=== PATIENT | male | born 1930 | race Caucasian/White ===

== ENCOUNTER → 2017-10-16 | Day surgery (SDC) | payer MEDICARE, OTHER ==
[~2017-10-16] MED LIST: ACTOS 30 MG TAB30 M1 PO; ADALAT CC60 MG PO; ASPIR 8181 MG PO; B COMPLEX1 EACH PO; BUMETANIDE0.25 MG/1 PO; BUMETANIDE2 M1 PO; CALCIUM ACETAT667 MG PO; CARVEDILOL12.5 MG PO; CHOLESTYRAMINE R5 GM; CLOPIDOGREL75 MG PO; COREG6.25 MG PO; FENOFIBRATE145 M1 PO; FISH OIL 1,001000 M2 PO; GLUCOTROL5 MG PO; HYDROCODON-ACE1 EAC7 PO; HYDROCODONE-AP1 EAC6 PO; IMDUR 60 MG TAB60 M1 PO; LASIX 40 MG TAB40 M2 PO; LEVAQUIN 250 M250 MG PO; LEVOTHYROXIN0.088 MG PO; LEVOTHYROXINE0.05 MG PO; LOPERAMIDE 2 MG2 M1 PO; NITROGLYCERIN0.4 MG SUBLING; PEPCID20 MG PO; PROTONIX40 M4 PO; TOUJEO SOL300 UNIT/1 SUBQ; TRESIBA FL100 UNIT/1 SUBQ; VITAMIN D2000 UNIT PO; [UNRECOGNIZED DRUG - OTHER] PO
[2017-10-16 11:11] LABS: CALCIUM 8.8 mg/dL (8.5-10.1); CREATININE 5.1 mg/dL (0.6-1.3); POTASSIUM 4.2 mmol/L (3.5-5.1)
[2017-10-16 11:15] LABS: ALBUMIN 3.2 g/dL (3.4-5.0); TOTAL BILIRUBIN 0.5 mg/dL (<0.1-1.0)
[2017-10-16 11:40] LABS: HEMATOCRIT 29.1 % (42.0-52.0); MCH 33.6 pg (26.0-34.0); MCHC 34.5 g/dL (28.0-37.0); MCV 97.3 fL (80.0-100.0); MPV 7.3 fl. (7.2-11.1); RBC 2.99 mil/uL (4.50-6.00); RDW-CV 13.2 % (10.5-14.5); WBC 4.8 thou/uL (4.0-11.0)
--- NOTE | 2017-10-16 14:54 | EKG ---
[place] [address] ELECTROCARDIOGRAM REPORT Name: RAMON DHILLON Room: [facility]#: [id number] Admission: 10/16/17 Attend Phys: Mio Monroe DO Discharge: Date of : [birth year] Report #: [id number] THIS REPORT FOR: //name// [facility] Test Date: 2017-10-16 Test Time: 11:00:52 Pat Name: RAMON DHILLON Department: Room: Gender: M Product Planner: : [id number] Requested By: Mio Monroe Order Number: [id number] Reading MD: Garth Jacobson Measurements Intervals Friedens Rate: 57 P: 55 NM: 206 QRS: 26 QRSD: 101 T: 114 QT: 439 QTc: 428 Interpretive Statements Sinus rhythm Nonspecific T abnormalities, lateral leads Compared to ECG 02/04/2017 09:18:51 T-wave abnormality now present Electronically Signed On 10-16-2017 14:54:37 CDT by Garth Jacobson [email or web address] <ELECTRONICALLY SIGNED> By: Garth Jacobson MD, [facility] 10/16/17 1454 1100 [facility] Garth Jacobson MD, FAC /EPI
--- NOTE | 2017-10-17 08:01 | OP ---
[address] [address] OPERATIVE REPORT Name: RAMON DHILLON Room: [facility]#: [id number] Admission: 10/16/17 Attend Phys: Mio Monroe DO Discharge: Date of : [birth year] Report #: [id number] THIS REPORT FOR: //name// CC: Mio Cortez DATE OF SERVICE: 10/16/2017 PREOPERATIVE DIAGNOSIS: Chronic kidney disease. POSTOPERATIVE DIAGNOSIS: Chronic kidney disease. OPERATION: Creation of a left brachial axillary arteriovenous graft with a 4-7 tapered Acuseal graft. SURGEON: Mio Monroe DO. HEADING SAW OPERATOR: JENNY Cassidy. ANESTHESIA: Sedation local. ESTIMATED BLOOD LOSS: 100 mL. FLUIDS: 250 crystalloid. URINE OUTPUT: None. SPECIMENS: None. IMPLANTS: A 4-7 tapered Acuseal graft in the left upper arm. COMPLICATIONS: None. FINDINGS: The left brachial artery was soft, 5 mm in diameter, suitable for access. The axillary vein was about 9 mm in diameter, good outflow. There was an excellent thrill within the graft completion with a palpable left radial artery pulse. CLINICAL HISTORY: The patient is an 87-year-old man who is nearing end-stage renal disease and needing dialysis. He has had previous left upper extremity fistula that thrombosed. Vein mapping suggested no good option for autogenous conduit in the left upper extremity, so a recommendation for graft was made and he presents today for same. DESCRIPTION OF PROCEDURE: After informed consent was obtained, the patient was taken to the operating room and placed on the OR bed in supine position. He was [facility] [address] [place] [address] OPERATIVE REPORT Name: RAMON DHILLON Room: [facility].#: [id number] Admission: 10/16/17 Attend Phys: Mio Monroe DO Discharge: Date of : [birth year] Report #: [id number] administered sedation by the Anesthesia Team. Left upper extremity was then prepped and draped in the usual sterile fashion. A full timeout was performed identifying correct patient and procedure. Next, a longitudinal incision was made on the medial aspect of the left upper arm. Dissection was carried down through skin and subcutaneous tissues both sharply and with electrocautery. The brachial artery was identified, circumferentially mobilized proximally and distally and controlled with Silastic vessel loops in Lim fashion. This was done after anesthetizing the skin and subcutaneous tissues with 10 mL of lidocaine anesthetic. I then turned my attention to the axillary region, again anesthetized the skin and subcutaneous tissues with lidocaine anesthetic, again made an incision longitudinally then carried my dissection through skin and subcutaneous tissues, both sharply and with electrocautery. The axillary vein was identified, again circumferentially mobilized proximally and distally, controlled with Silastic vessel loop. I then tunneled the graft anteromedially on the left upper arm. I then administered 5000 units of intravenous heparin. This was allowed to circulate for 3 minutes. I then tailored a lam, tailored anastomosis for the graft. I then occluded the brachial artery, made a longitudinal arteriotomy and extended with Lim scissors. I then performed an end-to-side anastomosis with a running 6-0 Prolene suture. Restored flow first up the graft and then distally to the hand. I then flushed the graft with heparinized saline and controlled with a profunda clamp. I then tailored the venous lam. I then occluded the axillary vein, made a longitudinal venotomy and extended with Lim scissors. I then performed end-to-side anastomosis of the graft and the vein with running 5-0 Prolene suture. Prior to completion of the suture line, the graft was flushed. The vein was allowed to fore and backbleed. I then flushed anastomosis with heparinized saline. I then completed the suture line and restored flow up the graft. At this point, Doppler interrogation confirmed good bruit in the axillary vein distal to the anastomosis augmented with graft compression. He had a palpable left radial artery pulse that did augment with graft compression as well. At this point, I then partially reversed the heparin with 40 mg protamine. Once hemostasis was ensured in the wounds, they were irrigated with antibiotic solution. They were closed in layers with 3-0 Vicryl and 4-0 Monocryl on the skin. Dermabond was applied. All sponge, sharp and instrument counts were reported as correct x 2. He tolerated the procedure well and transferred to recovery area in stable condition. <ELECTRONICALLY SIGNED> By: Mio Monroe DO 10/17/17 0801 [id number] [id number] Monroe DO /nt
== END | disposition home or self-care (01) ==
LOC: M.SUR 07:01
PROVIDERS: Surgery
DX: E11.22 Type 2 diabetes mellitus with diabetic chronic kidney disease (principal); N18.6 End stage renal disease; D64.9 Anemia, unspecified; I42.9 Cardiomyopathy, unspecified; I25.10 Atherosclerotic heart disease of native coronary artery without angina pectoris; Z98.890 Other specified postprocedural states; Z79.899 Other long term (current) drug therapy; Z88.0 Allergy status to penicillin; Z88.2 Allergy status to sulfonamides; Z88.8 Allergy status to other drugs, medicaments and biological substances; Z79.82 Long term (current) use of aspirin; Z79.4 Long term (current) use of insulin

== ENCOUNTER → 2017-11-06 | Outpatient (CLI) | payer MEDICARE, OTHER | LOC: M.MRI 13:04 | DX: M47.816 Spondylosis without myelopathy or radiculopathy, lumbar region (principal); M48.061 Spinal stenosis, lumbar region without neurogenic claudication; M51.26 Other intervertebral disc displacement, lumbar region; N28.1 Cyst of kidney, acquired; I12.0 Hypertensive chronic kidney disease with stage 5 chronic kidney disease or end stage renal disease; E11.22 Type 2 diabetes mellitus with diabetic chronic kidney disease; N18.5 Chronic kidney disease, stage 5; E03.9 Hypothyroidism, unspecified; E78.5 Hyperlipidemia, unspecified; I25.5 Ischemic cardiomyopathy; Z79.4 Long term (current) use of insulin ==

== ENCOUNTER → 2017-11-27 | Outpatient (CLI) | payer MEDICARE, OTHER ==
--- NOTE | 2018-01-02 15:56 | PAINCON ---
[address] [address] PAIN MANAGEMENT CONSULTATION Name: RAMON DHILLON [id number] Admission: 11/27/17 Attend Phys: Nahed Mcclendon MD Discharge: Date of : [birth year] Report #: [id number] THIS REPORT FOR: //name// CC: Aaron Mcclendon DATE OF SERVICE: 11/27/2017 CHIEF COMPLAINT: Low back pain and bilateral knee pain. HISTORY OF PRESENT ILLNESS: The patient is an 87-year-old gentleman who has been referred to the pain clinic for evaluation. The patient has a number of significant medical problems. Suffers from diabetes. The patient has renal failure. He states that he has about 11% function. He has a shunt, which has been placed for the possibility of dialysis in the future. The patient also has cardiomyopathy. Suffers from hypothyroidism and is experiencing pain and discomfort in his lower legs with neurogenic claudication. The patient has a history of spinal stenosis. Feels that his strength is becoming more problematic. He has come to the pain clinic for evaluation. The patient states he has spinal stenosis. He is not a surgical candidate. Possibility of conservative pain management is being sought. ALLERGIES: PENICILLIN, SULFA ANTIBIOTICS, LANOLIN. PAST MEDICAL HISTORY: Diabetes mellitus, left knee pain, coronary artery disease, hypertension, hyperlipidemia, hypothyroidism and history of cardiomyopathy. PAST SURGICAL HISTORY: Cardiac stents x 2 in 2002, cardiac stent x 2 in 2014, coronary artery bypass graft in 2000, five vessels, cholecystectomy and left knee arthroscopy. MEDICATIONS: Aspirin 81 mg daily, bumetanide 2 mg b.i.d., calcium 667 mg t.i.d., Coreg 6.25 mg, b.i.d., vitamin D3 2000 units, Cholestyramine 5 grams, Plavix 75 mg daily, fish oil 1000 mg b.i.d., Pepcid 20 mg at bedtime, Fenofibrate 145 mg, insulin subcutaneous, Imdur 60 mg, Synthroid 0.088 mg, nifedipine 60 mg, nitroglycerin sublingual 0.4 mg, vitamin B complex. SOCIAL HISTORY: He is retired, has not worked in 26 years. REVIEW OF SYSTEMS: Wears glasses, hearing loss of hearing aids, chronic sinus problems, shortness of breath, swelling of ankles and hands, feet, frequent diarrhea, frequent urination, painful joints, difficulty walking, thyroid disease or diabetes slow to heal. LABORATORY DATA: MRI of the lumbar spine dated 11/06/2017[place] [address] PAIN MANAGEMENT CONSULTATION Name: RAMON HDILLON Room: [facility]#: [id number] Admission: 11/27/17 Attend Phys: Nahed Mcclendon MD Discharge: Date of : [birth year] Report #: [id number] 1. L2-L3 shows mild diffuse disk bulge. There is facet spurring and degenerative changes, greater on the right. This combined to cause moderate right foraminal encroachment. There is mild left foraminal encroachment. Central canal is maintained. There is bilateral facet joint fluid with some ligamentum flavum hypertrophy. 2. L3-L4 shows mild diffuse disk bulge. Central canal is maintained. There is minimal inferior foraminal encroachment bilaterally. There is facet spurring and mild degenerative change with mild ligamentum flavum hypertrophy. 3. L4-L5 shows anterolisthesis combined with diffuse disk bulge. There is prominent bilateral facet spurring and degenerative changes with some mild ligamentum flavum hypertrophy. The changes combined to cause central spinal canal stenosis of measuring 6 mm. There is moderate bilateral foraminal encroachment. 4. L4-L5 shows a mild central disk protrusion without lateralization. There is mild disk bulging. The central canal and neural foramen are maintained. There is mild facet degenerative change with some facet fluid and ligamentum flavum hypertrophy. There is a small 7 mm left renal cyst. PAIN CLINIC ASSESSMENT: 1. History of osteoarthritis. The patient has arthritic change in his low back. 2. Rheumatoid arthritis. The patient has not been treated for rheumatoid arthritis. 3. Height 5 feet 5 inches. Weight 156 pounds, BMI is 26. 4. Vital signs: Blood pressure 134/44, heart rate 57, respiratory rate 16, room air saturation 94%, temperature 97.8. 5. Pain score 2/10 while resting can rise 8, 9 or 10 by evening. 6. Fall risk. The patient has not fallen in the last 3 months. 7. Blood thinner. The patient is on Plavix for history of 4 stents. 8. Hypertension. The patient is being treated for hypertension. 9. Opioid therapy greater than 6 weeks. The patient is not taking opioid medication on a regular basis. 10. Risk assessment tool. 11. Functional assessment tool. 12. Recreational drug use. The patient denied. 13. Tobacco: The patient denies. 14. Alcohol. The patient denies PHYSICAL EXAMINATION: GENERAL: The patient is a well-developed, well-nourished black male, appears stated age. He is alert and oriented x 3. Affect is appropriate. Speech is fluent. HEENT: Normocephalic, atraumatic. Extraocular eye muscles intact. Sclerae nonicteric. The patient wears hearing aids. HEART: Regular rate. LUNGS: Clear to auscultation. [address] [address] PAIN MANAGEMENT CONSULTATION Name: RAMON DHILLON Room: [facility] SoloMaddie#: [id number] Admission: 11/27/17 Attend Phys: Nahed Mcclendon MD Discharge: Date of : [birth year] Report #: [id number] ABDOMEN: Nontender. Bowel sounds present. NEUROLOGIC: Upper extremity muscle strength is judged to be 4+/5 for the major muscle groups of the upper extremity. The patient has a stent, which is in his left arm. The patient complains of pain and discomfort in lower portion of his back has bilateral knee pain. Notes that this pain worsens as the day goes on. The patient is experiencing pain which continues to be problematic. IMPRESSION: Bilateral knee pain, leg pain, diabetes mellitus, left knee pain, coronary artery disease, hypertension, hyperlipidemia, hypothyroidism and history of cardiomyopathy. RECOMMENDATIONS: We discussed treatment options with the patient. At this juncture, I think to have the patient to physical therapy might be beneficial. Also, given the patient's health, does not seem like he is a surgery candidate. We discussed the possibility of using opioid medications at the lowest level to help provide some benefit. The patient's is suffering from dementia. He is a primary caregiver. He is concerned that with his failing health this might be quite problematic. He will follow up. If his hop sorter feels that opioid medications are reasonable. We will start him at the least dose affective. A script for physical therapy has been provided. We would like to thank you for letting us participate in his care. We hope he continues to improve. <ELECTRONICALLY SIGNED> By: Nahed Mcclendon MD 01/02/18 1556 [id number]. Pillo Mcclendon MD /nt
== END ==
LOC: M.PC 04:33
DX: M25.561 Pain in right knee (principal); M25.562 Pain in left knee; M54.5 Low back pain; E11.9 Type 2 diabetes mellitus without complications; I25.10 Atherosclerotic heart disease of native coronary artery without angina pectoris; I10 Essential (primary) hypertension; E78.5 Hyperlipidemia, unspecified; E03.9 Hypothyroidism, unspecified

== ENCOUNTER → 2017-12-13 | Outpatient (CLI) | payer MEDICARE, OTHER | LOC: M.RAD 10:39 | DX: J98.11 Atelectasis (principal); J90 Pleural effusion, not elsewhere classified; N18.5 Chronic kidney disease, stage 5 ==